=== PATIENT | female | born 1960 | race Caucasian/White ===

== ENCOUNTER 2023-12-09 13:09 | Emergency (ER) | payer BC, SELFPAY ==
[2023-12-09] VITALS (7 sets, daily range): BP systolic 125–168; BP diastolic 71–101; PULSE 82–91; BMI 28.3
[2023-12-09 13:43] LABS: % Basophils 0.3 % (0-2); % Eosinophils 2.2 % (0-6); % Immature Granulocytes 0.3 % (0-0.5); % Lymphocytes 27.8 % (20.5-51.1); % Monocytes 7.6 % (1.7-9.3); % Neutrophils 61.8 % (42.2-75.2); Absolute Eosinophils 0.1 10^3/uL (0-0.7); Absolute Lymphocytes 1.7 10^3/uL (1.2-3.4); Absolute Monocytes 0.5 10^3/uL (0.1-0.6); Absolute Neutrophils 3.7 10^3/uL (1.4-6.5); Hematocrit 33.2 % (37.0-47.0); Hemoglobin 10.5 g/dL (12.0-16.0); Mean Corp Hgb Conc. 31.6 g/dL (33.0-37.0); Mean Corpuscular Hgb 24.8 pg (27.0-31.0); Mean Corpuscular Volume 78.3 fL (81.0-99.0); Mean Platelet Volume 8.9 fL (7.4-10.4); Nucleated Red Blood Cells % 0 %; Platelet Count 339 10^3/uL (130-400); Red Blood Cell Count 4.24 10^6/uL (4.20-5.40); Red Cell Dist. Width 15.8 % (11.5-14.5); White Blood Cell Count 5.9 10^3/uL (4.8-10.8)
[2023-12-09 13:52] LABS: ALT (SGPT) 49 U/L (0-35); AST (SGOT) 79 U/L (14-36); Albumin 4.6 g/dl (3.5-5.0); Alkaline Phosphatase 58 U/L (38-126); Blood Urea Nitrogen 22 mg/dl (7-17); Calcium 10.4 mg/dl (8.4-10.2); Carbon Dioxide 26 mmol/L (22-30); Chloride 102 mmol/L (98-107); Glucose 114 mg/dl (70-99); Potassium 4.4 mmol/L (3.5-5.1); Sodium 141 mmol/L (135-145); Total Bilirubin 0.3 mg/dl (0.2-1.3); Total Protein 7.1 g/dl (6.3-8.2); eGFR > 60.00
[2023-12-09] MEDS: NSS 1000 IV ×2 (15:01→16:08)
--- NOTE | 2023-12-09 16:08 | ED.GENMED ---
History of Present Illness
General
Chief Complaint: Weakness
Time Seen by Provider: 12/09/23 15:17
History of Present Illness
History of Present Illness:
63-year-old female with history of diabetes presenting to the emergency department for lightheadedness. Patient reports symptoms for the past 2 days. She reports just generally feeling off and unwell. Denies associated symptoms. Denies weakness,
visual changes, chest pain, difficulty breathing, abdominal pain. Reports that she checked her blood pressure 2 days ago and it was low. She feels dehydrated with her lips being dry. Denies any known sick contacts or fever. Reports for the past
6 months she has been dealing with what is believed to be vertigo, however is still scheduled to follow-up with a neurologist. Denies any recent fall or trauma. Denies additional acute medical complaints
Phy Exam
Physical Exam
Physical Exam:
General: Well-appearing, nontoxic and in no acute distress, slight dryness to the mucous membranes
HEENT: protecting airway
Neck: appears supple
CV: Normal heart rate, regular rhythm, no evidence of cyanosis
Resp: No accessory muscle use, no increased work of breathing, lungs clear to auscultation bilaterally
Abd: Soft and non-distended, no tenderness to palpation, normal bowel sounds
Extremities: No deformities, no swelling, no erythema
Neuro: alert, no focal neurologic deficit
: deferred
Rectal: deferred
Psych: Normal affect
Skin: Intact
Course
Orders/Labs/Results
Orders:
Orders
12/09/23 13:14
Electrocardiogram (*1) Urgent
Reason for Study: Vertigo / Dizzy
12/09/23 13:15
EKG- Treatment ONCE
12/09/23 13:22
Complete Blood Count/With Diff Urgent
Comprehensive Metabolic Panel Urgent
TSH Reflex To Free T4 Urgent
Comment: TSH REFLEX ADDED ON BY FLOOR 3:40PM 12-09-23
12/09/23 15:01
0.9% Sodium Chloride 1000 ml [Nss] 1,000 ml IV BOLUS
12/09/23 15:37
Add On- LAB Urgent
Tests Added?: TSH w/ reflex T4
Orthostatic VS- Treatment ONCE
12/09/23 15:38
CT Head W/o Iv Contrast Urgent
Comment:
Reason For Exam: dizziness
0.9% Sodium Chloride 1000 ml [Nss] 1,000 ml IV BOLUS
12/09/23 16:04
COVID-19 Antigen Urgent
Source: Nasal Swab
12/09/23 16:22
Urinalysis Reflex To Culture Urgent
Date Specimen was Collected: 12/09/23
Time Specimen was Collected: 16:15
Abnormal Lab Results
12/09/23
13:22
Hgb 10.5 L g/dL
(12.0-16.0)
Hct 33.2 L %
(37.0-47.0)
MCV 78.3 L fL
(81.0-99.0)
MCH 24.8 L pg
(27.0-31.0)
MCHC 31.6 L g/dL
(33.0-37.0)
RDW 15.8 H %
(11.5-14.5)
BUN 22 H mg/dl
(7-17)
Glucose 114 H mg/dl
(70-99)
Calcium 10.4 H mg/dl
(8.4-10.2)
AST 79 H U/L
(14-36)
ALT 49 H U/L
(0-35)
12/09/23 13:22
12/09/23 13:22
Vital Signs
Initial and Last Documented VS:
Initial Vital Signs
Temp Pulse Resp BP Pulse Ox
98.2 F 116 18 160/101 98
12/09/23 13:11 12/09/23 13:11 12/09/23 13:11 12/09/23 13:11 12/09/23 13:11
Last Documented Vital Signs
Temp Pulse Resp BP Pulse Ox
98.2 F 88 18 131/80 97
12/09/23 13:11 12/09/23 16:09 12/09/23 16:09 12/09/23 16:09 12/09/23 14:50
MDM/Problems Addressed
MDM/Problems Addressed:
63-year-old female with history of diabetes presenting for lightheadedness. Vital signs on arrival significant for mild tachycardia and mild hypertension, however patient notes that her blood pressure is always elevated when she is in the hospital,
is not on any antihypertensive medications.
On exam, patient is well-appearing, no acute distress, nontoxic, afebrile. Low suspicion for systemic infectious process as etiology of patient's symptoms. No focal neurologic deficits, with lower suspicion for central neurologic process etiology
of patient's symptoms. Patient had nursing protocol prior to my assessment, with laboratory analysis. Normal electrolyte panel, normal renal function with lower suspicion for severe dehydration. Patient receiving IV fluids for therapeutics.
Patient with normal glucose, without concern for DKA. EKG is sinus rhythm without acute ischemia, without concern for cardiac pathology. Will add a TSH level, urinalysis and a COVID test and reassess.
18:15 - Patient's CT is negative. On reassessment after second liter of fluids, reports that she is feeling better. TSH is normal. At this time feel that she is stable for discharge, however advised continued outpatient follow-up. Patient in
agreement with this plan. Advised continued oral hydration. Return precautions discussed and patient verbalized understanding
*EKG
Interpreted by ED Provider?: Yes
EKG Intrepretation Date: 12/09/23
EKG Intrepretation Time: 16:11
Interpretation: normal
Comparison EKG: no comparison EKG present
Heart Rate: 101
Rate: tachycardiac
Rhythm: sinus
[place]: normal axis
Interval: normal interval
QRS Pattern: normal QRS
Ischemia: no ischemia
*Critical Care Note
Total Time (30-74mins, 75-104mins- exclusive of procedures): Not Applicable
ED Attending Note
-
Portions of this chart may have been created with voice recognition software.� Occasional wrong word or��sound alike� substitutions may have occurred due to the inherent limitations of voice recognition software.
Discharge Plan
Departure
Referrals:
Jessica Shah DO [Family Provider] -
Interventions
Interventions:
*Risk Screen - Suicide Last Done: 12/09/23 13:11
*General Assessment Last Done: 12/09/23 13:11
*Neglect/Abuse Screening Last Done: 12/09/23 13:11
*ED COVID-19 Vaccine History Last Done: 12/09/23 14:57
ED- Cardiac Assessment Last Done: 12/09/23 14:57
ED- Neurological Assessment Last Done: 12/09/23 14:57
ED- Pulmonary Assessment Last Done: 12/09/23 14:57
Discharge Date and Time
Print Language: SWAZI
[2023-12-09 16:36] LABS: COVID-19 Antigen Negative (Negative)
[2023-12-09 16:41] LABS: Urine Albumin Negative (Neg - Trace); Urine Bilirubin Negative (Negative); Urine Character Clear (Clear); Urine Color Yellow; Urine Glucose Negative (Negative); Urine Ketone Negative (Negative); Urine Leukocyte Negative (Negative); Urine Nitrite Negative (Negative); Urine Occult Blood Negative (Negative); Urine Urobilinogen Negative (Neg - 1+)
== END 2023-12-09 18:42 | disposition home or self-care (01) ==
LOC: EMR 13:09
PROVIDERS: Student in an Organized Health Care Education/Training Program; EMERGENCY PHYSICIAN Student in an Organized Health Care Education/Training Program; FAMILY PHYSICIAN Family Medicine
DX: R42 Dizziness and giddiness (principal); R00.0 Tachycardia, unspecified; Z11.52 Encounter for screening for COVID-19; R03.0 Elevated blood-pressure reading, without diagnosis of hypertension; E11.9 Type 2 diabetes mellitus without complications; Z88.8 Allergy status to other drugs, medicaments and biological substances; Z91.048 Other nonmedicinal substance allergy status
CPT/HCPCS: 99284; 96360; 70450; 80053; 81003; 84443; 85025; 87811; 93005

== ENCOUNTER → 2024-02-02 09:21 | Outpatient (REF) | payer BC, SELFPAY | LOC: RCS 09:21 | PROVIDERS: ATTENDING PHYSICIAN Nurse Practitioner; FAMILY PHYSICIAN Registered Nurse | DX: R42 Dizziness and giddiness (principal); I35.1 Nonrheumatic aortic (valve) insufficiency | CPT/HCPCS: 93306 ==